=== PATIENT | female | born 1950 | race Caucasian/White ===

== ENCOUNTER 2016-04-07 09:59 | Inpatient (IN) | payer OTHER ==
[~2016-04-07 09:59] MED LIST: ACETAMINOPHEN 325 MG TAB PO ONE; BISACODYL 10 MG SUPP PR PRN; CEFAZOLIN 2 GM/DEXTR 100 ML IV ONE; CHLORHEXIDINE GLUC HIBICLENS 118 ML BTL TP ONE; CYCLOBENZAPRINE 10 MG TAB PO PRN; DIPHENOXYLATE/ATROPINE LOMOTIL 1 TAB PO PRN; FAMOTIDINE 20 MG TAB PO ONE; LACTULOSE 20 GM/30 ML UDCUP PO PRN; LR 1,000 ML IV SCH; MAGNESIUM HYDROXIDE 30 ML UDCUP PO PRN; METOCLOPRAMIDE 10 MG/2 ML VIAL IVP PRN; NON-FORMULARY NEW DRUG (Fish Oil/Dha/Epa [Fish Oil 1,200 Mg Fish Oil] 1 EACH) PO SCH; ONDANSETRON 4 MG/2 ML VIAL IVP PRN; ONDANSETRON DISINTEGRATING 4 MG TAB PO PRN; PHARMACY PAIN CONSULT 1 EA MISC PRN; POLYETHYLENE GLYCOL 3350 17 GM PKT PO PRN; PROMETHAZINE HCL 25 MG SUPPR PR PRN; PROMETHAZINE HCL 25 MG/ML INJ IVP PRN; ROPI/epiNEPH/KETOROLAC/morphINE JOINT COCKTAIL IU ONE; TEMAZEPAM 15 MG CAP PO PRN; diphenhydrAMINE 25 MG CAP PO PRN
[2016-04-07] MEDS ORDERED: THROMBIN (RECOMBINANT) 5,000 UNIT VIAL TP ONE (10:51)
[2016-04-07] MEDS ORDERED: ceFAZolin 1 GM/5 ML SYR ONE (10:52)
[2016-04-07] MEDS ORDERED: CALCIUM CHLORIDE 1 GM/10 ML INJ ONE (10:52)
[2016-04-07] MEDS ORDERED: LIDOCAINE 1% 5 ML SDV ID PRN (11:13)
[2016-04-07] MEDS ORDERED: LR 1,000 ML IV ONE (11:13)
[2016-04-07] MEDS ORDERED: CEFAZOLIN 2 GM/DEXTROSE/100 ML BAG IV ONE (11:19)
[2016-04-07] MEDS ORDERED: FAMOTIDINE 20 MG TAB ONE (11:19)
[2016-04-07] MEDS ORDERED: MIDAZOLAM 2 MG/2 ML VIAL ONE (11:55)
[2016-04-07] MEDS ORDERED: fentaNYL 100 MCG/2 ML INJ ONE (12:10)
[2016-04-07] MEDS ORDERED: PROPOFOL/EMULSION 500 MG/50 ML BOTTLE IV ONE (12:10)
[2016-04-07] MEDS ORDERED: ONDANSETRON 4 MG/2 ML VIAL ONE (13:05)
[2016-04-07] MEDS ORDERED: DEXAMETHASONE 4 MG/ML VIAL ONE (13:05)
[2016-04-07] MEDS ORDERED: ROPIVACAINE HCL 150 MG/30 ML INJ ONE (13:19)
--- NOTE | 2016-04-07 15:38 | DX ---
Total Right Knee, Supine AP and Crosstable Lateral Views, at 3:12 p.m. Clinical History: 65-year-old female, status post right knee arthroplasty. Comparison Study: Right knee, dated October 20, 2014. Findings: The patient has undergone a tricomponent knee arthroplasty, with anatomic alignment of the distal femoral, proximal tibial, and the posterior patellar components. Skin devang are seen anterio rly. There is normally expected postoperative air in the soft tissues. Impression: Anatomic alignment following a right knee arthroplasty.
[2016-04-07] MEDS: ACETAMINOPHEN 325 MG TAB PO SCH ×2 (15:43→17:20)
[2016-04-07] MEDS: HYDROCHLOROTHIAZIDE 12.5 MG CAP PO SCH ×2 (15:44→17:20)
[2016-04-07] MEDS: CHOLECALCIFEROL VIT D3 2,000 UNITS TAB/CAP PO SCH (15:44)
[2016-04-07] MEDS: OMEGA-3 FATTY ACIDS 1,000 MG CAP PO SCH ×3 (15:44→18:50)
--- NOTE | 2016-04-07 15:44 | PDIAF ---
- Diagnosis Diagnosis: right knee djd Code Status: Full Code - Medication Management Discharge Medications: Medications to Continue on Transfer Alendronate Sodium [Fosamax 70 MG (*)] 70 mg PO SALAZAR@0700 03/17/16 [Last Taken 1 Day Ago] Aspirin [Aspirin 81mg (*)] 81 mg PO DAILY 03/17/16 [Last Taken 03/30/16] Cholecalciferol Vit D3 [Vitamin D3 2000 units tab (OTC)] 2,000 units PO DAILY [Last Taken 03/30/16] Fish Oil/Dha/Epa [Fish Oil 1,200 mg Fish Oil] 1 each PO 0800,1600 03/17/16 [ Last Taken 03/30/16] Herbals/Supplements -Info Only 1 ea PO DAILY 03/17/16 [Last Taken 03/30/16] Hydrochlorothiazide [HCTZ (*)] 12.5 mg PO 0800,1600 03/17/16 [Last Taken ] Multivitamins [Multivitamin (*)] 1 each PO DAILY 03/17/16 [Last Taken 03/30/16] Zolpidem Tartrate [Zolpidem Tartrate ER] 12.5 mg PO HS 03/17/16 [Last Taken 1 Day Ago] Discharge Medications: Refer to the Discharge Home Medication list for PRN reason. - Orders Diet Recommendation: no restrictions on diet Diet Texture: Regular Texture Diet Activity/Weight Bearing Restrictions: wbat. rom as elton. daily dressing changes. may shower without bandage, no soaking or immersion. f/u at two weeks [facility], call for appointment. seek attn for increasing pain, cp , sob. aspirin 325 mg po daily\. tiera rosen x 2 weeks - Follow Up Care Current Providers and Referrals: Shawnee Duran MD [Primary Care Provider] -
[2016-04-07] MEDS: SENNOSIDES/DOCUSATE SODIUM TAB PO SCH ×2 (15:45→21:56)
[2016-04-07] MEDS: oxyCODONE IR 5 MG TAB PO PRN ×3 (15:59→22:45)
[2016-04-07] MEDS: DIAZEPAM 5 MG TAB PO PRN (19:20)
[2016-04-07] MEDS ORDERED: ceFAZolin 2 GM/DEXTROSE 100 ML IV SCH (20:30)
[2016-04-07] MEDS ORDERED: NON-FORMULARY NEW DRUG (Zolpidem Tartrate [Zolpidem Tartrate Er] 12.5 MG) PO SCH (21:00)
[2016-04-07] MEDS ORDERED: ZOLPIDEM TARTRATE 5 MG TAB PO SCH (21:00)
[2016-04-07] MEDS ORDERED: ASPIRIN 325 MG TAB PO SCH (21:00)
[2016-04-07 21:29] VITALS: RESP 16
[2016-04-07] MEDS: FAMOTIDINE 20 MG TAB PO SCH (21:56)
[2016-04-07] MEDS: ceFAZolin 2 GM in D5W 100 ML IV SCH (22:02)
[2016-04-08 00:25] VITALS: O2SAT 96
[2016-04-08] MEDS: ACETAMINOPHEN 325 MG TAB PO SCH ×2 (00:48→07:30)
[2016-04-08] MEDS: DIAZEPAM 5 MG TAB PO PRN (01:48)
[2016-04-08] MEDS: oxyCODONE IR 5 MG TAB PO PRN ×2 (01:48→10:50)
[2016-04-08 06:55] LABS: HEMATOCRIT 33.6 % (38.0-47.0); HEMOGLOBIN 11.7 g/dL (12.6-16.3)
--- NOTE | 2016-04-08 07:12 | PDIAF ---
- Diagnosis Diagnosis: right knee djd Code Status: Full Code - Medication Management Discharge Medications: Medications to Continue on Transfer Alendronate Sodium [Fosamax 70 MG (*)] 70 mg PO SALAZAR@0700 03/17/16 [Last Taken 1 Day Ago] Aspirin [Aspirin 81mg (*)] 81 mg PO DAILY 03/17/16 [Last Taken 03/30/16] Cholecalciferol Vit D3 [Vitamin D3 2000 units tab (OTC)] 2,000 units PO DAILY [Last Taken 03/30/16] Fish Oil/Dha/Epa [Fish Oil 1,200 mg Fish Oil] 1 each PO 0800,1600 03/17/16 [ Last Taken 03/30/16] Herbals/Supplements -Info Only 1 ea PO DAILY 03/17/16 [Last Taken 03/30/16] Hydrochlorothiazide [HCTZ (*)] 12.5 mg PO 0800,1600 03/17/16 [Last Taken ] Multivitamins [Multivitamin (*)] 1 each PO DAILY 03/17/16 [Last Taken 03/30/16] Zolpidem Tartrate [Zolpidem Tartrate ER] 12.5 mg PO HS 03/17/16 [Last Taken 1 Day Ago] Aspirin [Aspirin 325 mg (*)] 325 mg PO HS #0 tab 04/08/16 [Last Taken Unknown] Diazepam [Valium 5 MG (*)] 5 mg PO Q6HRS PRN #40 tab 04/08/16 [Last Taken Unknown] Zolpidem Tartrate [Ambien 5MG (*)] 10 mg PO HS #20 tab 04/08/16 [Last Taken Unknown] oxyCODONE IR [Oxycodone Ir (*)] 5 - 10 mg PO Q3HRS PRN #80 tab 04/08/16 [Last Taken Unknown] Discharge Medications: Refer to the Discharge Home Medication list for PRN reason. - Orders Services needed: Physical Therapy Diet Recommendation: no restrictions on diet Diet Texture: Regular Texture Diet Activity/Weight Bearing Restrictions: wbat. rom as elton. daily dressing changes. may shower without bandage, no soaking or immersion. f/u at two weeks [facility], call for appointment. seek attn for increasing pain, cp , sob. aspirin 325 mg po daily\. tiera hose x 2 weeks - Follow Up Care Current Providers and Referrals: Shawnee Duran MD [Primary Care Provider] -
[2016-04-08] MEDS: ceFAZolin 2 GM in D5W 100 ML IV SCH (07:30)
[2016-04-08 07:55] VITALS: BP 107/65; PULSE 68; TEMP 98.2
[2016-04-08] MEDS: CHOLECALCIFEROL VIT D3 2,000 UNITS TAB/CAP PO SCH (08:49)
[2016-04-08] MEDS: OMEGA-3 FATTY ACIDS 1,000 MG CAP PO SCH (08:49)
[2016-04-08] MEDS: FAMOTIDINE 20 MG TAB PO SCH (08:49)
[2016-04-08] MEDS: SENNOSIDES/DOCUSATE SODIUM TAB PO SCH (08:50)
[2016-04-08] MEDS: HYDROCHLOROTHIAZIDE 12.5 MG CAP PO SCH (08:54)
--- NOTE | 2016-04-08 09:47 | GDS ---
[f rep st] DISCHARGE SUMMARY ADMISSION DIAGNOSIS: Right knee degenerative joint disease. DISCHARGE DIAGNOSIS: Right knee degenerative joint disease. PROCEDURE: Right total knee arthroplasty. HISTORY OF PRESENT ILLNESS: The patient is a 65-year-old woman with end-stage arthritis to her [facility] t knee. Clinical and radiographic features are consistent with this. She has failed all attempts a t conservative management. I have therefore recommended total knee replacement. She understood the risks, benefits, alternatives, and wished to proceed. Written consent was signed and placed in catrachita varela's chart. HOSPITAL COURSE: The patient was admitted to the hospital floor after undergoing uncomplicated tota l knee arthroplasty. She tolerated the procedure well. At the time of discharge, she was toleratin g oral diet. Her pain is well controlled on oral medicines. Her dressing is clean, dry, and intact . She has intact plantar flexion, dorsiflexion, EHL function. Negative Homans bilaterally. X-rays are stable postsurgical alignment. DISCHARGE ACTIVITY: She is weightbearing as tolerated. Range of motion as tolerated. Daily dressi ng changes. No soaking and/or immersion. Follow up in 2 weeks for repeat evaluation. DISCHARGE MEDICATIONS: Oxycodone 5 mg 1-2 every 3 hours p.r.n. pain, Valium 5 mg 1-2 every 8 hours p.r.n. spasm, aspirin 325 mg p.o. daily. /[id number]/MODL
[2016-04-13] MEDS ORDERED: ALENDRONATE SODIUM 70 MG TAB PO SCH (07:00)
== END 2016-04-08 11:58 | disposition home health service (06) | DRG 470 ==
LOC: F3N 09:59
PROVIDERS: ADMIT Orthopaedic Surgery; ATTEND Orthopaedic Surgery
PROC: 0SRC0J9 Replacement of Right Knee Joint with Synthetic Substitute, Cemented, Open Approach (ICD-10-PCS; principal; 2016-04-07 11:30)
DX: M17.11 Unilateral primary osteoarthritis, right knee (principal)
CPT/HCPCS: 97110-GP; 97161-GP; 97165-GO; C1713; G8978-GP-CI; G8979-GP-CI; G8980-GP-CI; G8987-GO-CI; G8988-GO-CI; G8989-GO-CI; J0171; J0690; J1100; J1885; J2250; J2405; J2704; J2795; J3010

== ENCOUNTER → 2016-05-20 | Outpatient (CLI) | payer OTHER | LOC: BMCIMAGING 10:39 | PROVIDERS: ATTEND Physician Assistant | DX: Z09 Encounter for follow-up examination after completed treatment for conditions other than malignant neoplasm (principal); Z96.651 Presence of right artificial knee joint ==

== ENCOUNTER → 2016-07-11 | Outpatient (CLI) | payer OTHER | LOC: BMCIMAGING 11:04 | PROVIDERS: ATTEND Orthopaedic Surgery | DX: Z09 Encounter for follow-up examination after completed treatment for conditions other than malignant neoplasm (principal); Z96.651 Presence of right artificial knee joint ==

== ENCOUNTER → 2016-07-15 | Outpatient (CLI) | payer OTHER | LOC: FIMAGING 13:54 | PROVIDERS: ATTEND Family Medicine | DX: Z12.31 Encounter for screening mammogram for malignant neoplasm of breast (principal) | CPT/HCPCS: G0202 ==

== ENCOUNTER → 2016-10-08 | Outpatient (CLI) | payer OTHER | LOC: BMCIMAGING 12:53 | PROVIDERS: ATTEND Orthopaedic Surgery | DX: Z47.1 Aftercare following joint replacement surgery (principal); Z96.651 Presence of right artificial knee joint ==

== ENCOUNTER → 2017-04-08 | Outpatient (CLI) | payer OTHER | LOC: FIMAGING 13:21 | PROVIDERS: ATTEND Internal Medicine Endocrinology, Diabetes & Metabolism | DX: Z13.820 Encounter for screening for osteoporosis (principal); M81.0 Age-related osteoporosis without current pathological fracture; Z79.899 Other long term (current) drug therapy; Z78.0 Asymptomatic menopausal state ==

== ENCOUNTER → 2017-04-30 | Outpatient (CLI) | payer OTHER | LOC: BMCIMAGING 10:29 | PROVIDERS: ATTEND Physician Assistant | DX: Z47.1 Aftercare following joint replacement surgery (principal); Z96.651 Presence of right artificial knee joint ==

== ENCOUNTER → 2017-07-27 | Outpatient (CLI) | payer OTHER | LOC: FIMAGING 12:57 | PROVIDERS: ATTEND Family Medicine | DX: Z12.31 Encounter for screening mammogram for malignant neoplasm of breast (principal) ==

== ENCOUNTER → 2017-12-21 | Outpatient (CLI) | payer OTHER | LOC: BMCIMAGING 10:05 | PROVIDERS: ATTEND Physician Assistant | DX: M17.12 Unilateral primary osteoarthritis, left knee (principal) ==

== ENCOUNTER → 2018-01-24 | Outpatient (CLI) | payer OTHER | LOC: FIMAGING 12:12 | PROVIDERS: ATTEND Orthopaedic Surgery | DX: Z01.818 Encounter for other preprocedural examination (principal); M17.12 Unilateral primary osteoarthritis, left knee ==

== ENCOUNTER → 2018-03-10 | Outpatient (CLI) | payer OTHER | LOC: BMCIMAGING 13:58 | PROVIDERS: ATTEND Family Medicine | DX: Z01.811 Encounter for preprocedural respiratory examination (principal); M17.12 Unilateral primary osteoarthritis, left knee; J98.4 Other disorders of lung ==

== ENCOUNTER 2018-04-05 08:50 | Observation (INO) | payer OTHER ==
--- NOTE | 2018-04-05 06:46 | PDHPUP ---
History & Physical Update H&P update statement: This history and physical update is based on an assessment of the patient which was completed after admission or registration (within 24 hours), but prior to the surgery/procedure. H&P update: no change in patient's condition since H&P completed
--- NOTE | 2018-04-05 06:47 | PDIAF ---
- Diagnosis Diagnosis: left knee djd Code Status: Full Code - Medication Management Discharge Medications: electronically signed and located in the Home Medication List. - Orders Services needed: Physical Therapy Diet Recommendation: no restrictions on diet Diet Texture: Regular Texture Diet Additional Instructions: TOTAL JOINT ARTHROPLASTY DISCHARGE INSTRUCTIONS 1. Your surgeon follows the [facility] protocol for reducing your risk of DVT (blood clots) following surgery. Medication will be ordered to prevent blood clots. A sudden increase in calf pain and/or swelling could indicate a blood clot in your leg. If this occurs, please call your surgeon or his/her syrup mixer assistant. An ultrasound of the leg may be necessary to diagnose a blood clot. If you have conditions that make you a higher risk for blood clots, your surgeon may use more aggressive ways to prevent them. Notify your surgeon if you think you are a high risk for blood clots. 2. Wear your white surgical stockings (CIARRA hose) for 2 weeks. This decreases your swelling and may help prevent blood clots. It is ok to remove CIARRA hose at night time to give your legs a break. 3. Swelling and bruising in the surgical leg is common. If you feel that it is excessive, please notify your surgeon. 4. Elevate your surgical leg with the ankle above the hip several times every day. Please keep the leg straight when you elevate by putting pillows under your foot. Do not put pillows under your knee. This will make being able to fully straighten more difficult. This is uncomfortable, but try to do it as much as possible. 5. For total knee replacements use compressive wrap on your knee for 3-5 days after surgery, then you can discontinue it. 6. Use a walker or crutches for 1-2 weeks. Progress your weight-bearing as tolerated. You may start to use a cane when you feel stable and safe. 7. You will receive physical therapy instructions in the hospital. Continue those exercises at home. There are additional exercises in the total joint booklet you were given before surgery. Outpatient physical therapy will begin 7- 10 days after surgery. Please schedule this in advance. 8. Use ice on your knee at least 3-5 times every day for 30 minutes. This helps reduce pain and swelling. Also use it at night before falling asleep. 9. Leave your surgical dressing in place for 2 weeks. Your dressing is water resistant, but not waterproof. Cover it with Saran Wrap or [id number]-t-Dbvs before showering. You may shower as soon as you feel safe entering a shower. If you notice bleeding from your incision 2 or 3 days after surgery, please notify your surgeon. 10. Due to narcotics, decreased activity and altered diet, most patients experience constipation after surgery. Use [id number] stool softeners while you are on narcotics. 11. You may drive a car when you are comfortable bearing weight, have good muscular control of your leg and are off narcotics. This usually occurs 2-4 weeks after surgery, depending on which leg was operated on. 12. If there are questions not addressed here, please refer the [facility] book given for more information. If you still have questions, please contact your surgeon s office. 13. If you have a life-threatening emergency, please call 911 and go to the emergency room immediately. For non-life threatening emergencies, please call your physicians office for advice before going to the emergency room. - Follow Up Care Current Providers and Referrals: Shawnee Duran MD [Primary Care Provider] - Jesu Carlton MD [Medical Doctor] -
[~2018-04-05 08:50] MED LIST changes: -ACETAMINOPHEN 325 MG TAB PO ONE; -BISACODYL 10 MG SUPP PR PRN; -CEFAZOLIN 2 GM/DEXTR 100 ML IV ONE; -CHLORHEXIDINE GLUC HIBICLENS 118 ML BTL TP ONE; -CYCLOBENZAPRINE 10 MG TAB PO PRN; -DIPHENOXYLATE/ATROPINE LOMOTIL 1 TAB PO PRN; -FAMOTIDINE 20 MG TAB PO ONE; -LACTULOSE 20 GM/30 ML UDCUP PO PRN; -LR 1,000 ML IV SCH; -MAGNESIUM HYDROXIDE 30 ML UDCUP PO PRN; -METOCLOPRAMIDE 10 MG/2 ML VIAL IVP PRN; -NON-FORMULARY NEW DRUG (Fish Oil/Dha/Epa [Fish Oil 1,200 Mg Fish Oil] 1 EACH) PO SCH; -ONDANSETRON 4 MG/2 ML VIAL IVP PRN; -ONDANSETRON DISINTEGRATING 4 MG TAB PO PRN; -PHARMACY PAIN CONSULT 1 EA MISC PRN; -POLYETHYLENE GLYCOL 3350 17 GM PKT PO PRN; -PROMETHAZINE HCL 25 MG SUPPR PR PRN; -PROMETHAZINE HCL 25 MG/ML INJ IVP PRN; -ROPI/epiNEPH/KETOROLAC/morphINE JOINT COCKTAIL IU ONE; +ROPIVACAINE 0.2% 80 MG, EPINEPHrine 0.2 MG, KETOROLAC TROMETHAMINE 30 MG, morphINE 10 M... IU ONE; -TEMAZEPAM 15 MG CAP PO PRN; +TRANEXAMIC ACID 1,000 MG in NS 100 ML IV ONE; -diphenhydrAMINE 25 MG CAP PO PRN
[2018-04-05] MEDS ORDERED: ceFAZolin 2 GM/DEXTROSE 100 ML IV ONE (09:18)
[2018-04-05] MEDS ORDERED: ACETAMINOPHEN 325 MG TAB PO ONE (09:18)
[2018-04-05] MEDS ORDERED: FAMOTIDINE 20 MG TAB PO ONE (09:18)
[2018-04-05] MEDS ORDERED: LR 1,000 ML IV ONE (09:19)
[2018-04-05] MEDS ORDERED: PROPOFOL/EMULSION 500 MG/50 ML BOTTLE IV ONE (09:20)
[2018-04-05] MEDS ORDERED: fentaNYL 100 MCG/2 ML INJ ONE ×3 (09:20→12:46)
--- NOTE | 2018-04-05 09:23 | PDANEPAE ---
ANE Past Medical History - Cardiovascular History Hx Hypertension: Yes Hx Arrhythmias: No Hx Chest Pain: No Hx Coronary Artery / Peripheral Vascular Disease: No Hx CHF / Valvular Disease: No Hx Palpitations: No Cardiovascular History Comment: HYPERCALCIURIA - Pulmonary History Hx COPD: No Hx Asthma/Reactive Airway Disease: No Hx Recent Upper Respiratory Infection: No Hx Oxygen in Use at Home: No Hx Sleep Apnea: No Sleep Apnea Screening Result - Last Documented: Negative - Neurologic History Hx Cerebrovascular Accident: No Hx Seizures: No Hx Dementia: No - Endocrine History Hx Diabetes: No Hypothyroid: No Hyperthyroid: No Obesity: no - Renal History Hx Renal Disorders: No - Liver History Hx Hepatic Disorders: No - Neurological & Psychiatric Hx Hx Neurological and Psychiatric Disorders: No Neurological / Psychiatric History Comment: ANXIETY - Cancer History Hx Cancer: No Cancer History Comment: MELANOMA REMOVED FROM L LEG,3 LYMPH NODES REMOVED IN GROIN AREA - Congenital Disorder History Hx Congenital Disorders: No - GI History GERD: no Hx Gastrointestinal Disorders: Yes Gastrointestinal History Comment: IBS - Other Health History Other Health History: INSOMNIA. OSTEOPOROSIS. ALLERGIC RHINITIS - Chronic Pain History Chronic Pain: Yes (RT KNEE) - Surgical History Prior Surgeries: REMVL MELANOMA BEHIND LT KNEE AND REMVL LYMPH NODES. 09/2015 POST LEG INFECTION TREATED WITH ANTIBIOTICS. APPENDECTOMY. LT ANKLE ORIF WITH POST HARDWARE REMVL. LT KNEE SCOPE ANE Review of Systems Review of Systems: - Exercise capacity Exercise capacity: >=4 METS, limited by disability METS (RN): 5 METS ANE Patient History - Allergies Allergies/Adverse Reactions: lactose Allergy (Verified 03/19/18 16:24) Other-Enter Comments SEASONAL Allergy (Uncoded 03/19/18 16:20) Other-Enter Comments - Home Medications Home Medications: Alendronate Sodium [Fosamax 70 MG (*)] 70 mg PO SALAZAR@0700 03/17/16 [Last Taken 06/11] Aspirin [Aspirin 81mg (*)] 81 mg PO DAILY 03/17/16 [Last Taken 03/01/18] Fish Oil/Dha/Epa [Fish Oil 1,200 mg Fish Oil] 1 each PO DAILY 03/17/16 [Last Taken 03/29/18] Herbals/Supplements -Info Only 1 ea PO DAILY 03/17/16 [Last Taken 03/22/18] Hydrochlorothiazide [HCTZ (*)] 12.5 mg PO 0800,1600 03/17/16 [Last Taken ] Multivitamins [Multivitamin (*)] 1 each PO DAILY 03/17/16 [Last Taken 03/01/18] Zolpidem Tartrate [Zolpidem Tartrate ER] 12.5 mg PO HS 03/17/16 [Last Taken 12/11] Gabapentin [Neurontin 300 MG (*)] 300 mg PO TID 03/01/18 [Last Taken 04/05/18] Estradiol [VAGIFEM] 10 mcg VG DAILY 04/05/18 [Last Taken 04/01/18] - Anes Hx Anes Hx: no prior problems - Smoking Hx Smoking Status: Former smoker Marijuana use: No - Alcohol Use Alcohol Use: Occasionally - Family Anes Hx Family Anes Hx: neg - N/A Family Hx Anesthesia Complications: none ANE Labs/Vital Signs - Vital Signs Height: 161.29 cm Weight: 65.771 kg ANE Physical Exam - Airway Neck exam: FROM Mallampati Score: Class 2 Mouth exam: normal dental/mouth exam - Pulmonary Pulmonary: no respiratory distress, no rales or rhonchi, clear to auscultation - Cardiovascular Cardiovascular: regular rate and rhythym, no murmur, rub, or gallop - ASA Status ASA Status: II ANE Anesthesia Plan Anesthesia Plan: MAC, spinal Regional Anesthesia: single shot NB, adductor canal FNB Total IV Anesthesia: No
[2018-04-05] MEDS ORDERED: THROMBIN (BOVINE) 5,000 UNIT VIAL TP ONE (09:37)
[2018-04-05] MEDS ORDERED: CALCIUM CHLORIDE 1 GM/10 ML INJ ONE (09:38)
[2018-04-05] MEDS ORDERED: ceFAZolin 1 GM/5 ML SYR ONE (09:39)
[2018-04-05] MEDS ORDERED: MIDAZOLAM 2 MG/2 ML VIAL ONE (09:55)
[2018-04-05] MEDS ORDERED: BUPIVACAINE/DEXTROSE 7.5MG/ML 2 ML SPINAL AMP SP ONE (10:03)
[2018-04-05] MEDS ORDERED: MIDAZOLAM 2 MG/2 ML VIAL IVP ONE (10:07)
[2018-04-05] MEDS ORDERED: ONDANSETRON 4 MG/2 ML VIAL IVP PRN ×2 (10:58→11:29)
[2018-04-05] MEDS ORDERED: HYDROCODONE/APAP 5/325 TAB PO PRN (10:58)
[2018-04-05] MEDS ORDERED: ACETAMINOPHEN 500 MG TAB PO PRN (10:58)
[2018-04-05] MEDS ORDERED: PROMETHAZINE HCL 25 MG/ML INJ IVP PRN ×2 (10:58→11:29)
[2018-04-05] MEDS ORDERED: PHENYLEPHRINE HCL 100 MCG/ML SYR IVP PRN (10:58)
[2018-04-05] MEDS ORDERED: oxyCODONE IR 5 MG TAB PO PRN (10:58)
[2018-04-05] MEDS ORDERED: NALOXONE HCL 0.4 MG/ML INJ IVP PRN (10:58)
[2018-04-05] MEDS ORDERED: LR 500 ML IV PRN (10:58)
[2018-04-05] MEDS ORDERED: ROPIVACAINE HCL 150 MG/30 ML INJ ONE (11:27)
[2018-04-05] MEDS ORDERED: METOCLOPRAMIDE 10 MG/2 ML VIAL IVP PRN (11:29)
[2018-04-05] MEDS ORDERED: ONDANSETRON DISINTEGRATING 4 MG TAB PO PRN (11:29)
[2018-04-05] MEDS ORDERED: PROMETHAZINE HCL 25 MG SUPPR PR PRN (11:29)
[2018-04-05] MEDS ORDERED: POLYETHYLENE GLYCOL 3350 17 GM PKT PO PRN (11:29)
[2018-04-05] MEDS ORDERED: LACTULOSE 20 GM/30 ML UDCUP PO PRN (11:29)
[2018-04-05] MEDS ORDERED: TEMAZEPAM 15 MG CAP PO PRN (11:29)
[2018-04-05] MEDS ORDERED: traMADol 50 MG TAB PO PRN (11:29)
[2018-04-05] MEDS ORDERED: diphenhydrAMINE 25 MG CAP PO PRN (11:29)
[2018-04-05] MEDS ORDERED: MAGNESIUM HYDROXIDE 30 ML UDCUP PO PRN (11:29)
[2018-04-05] MEDS ORDERED: BISACODYL 10 MG SUPP PR PRN (11:29)
[2018-04-05] MEDS ORDERED: DIPHENOXYLATE/ATROPINE LOMOTIL 1 TAB PO PRN (11:29)
--- NOTE | 2018-04-05 11:29 | POSTOPPROG ---
Post Op Note Date of Operation: 04/05/18 Surgeon: Jesu Carlton Clay Dry Press Helper: roshni Anesthesiologist: claribel Anesthesia: GET(General Endotracheal) Pre-op Diagnosis: left knee djd Post-op Diagnosis: same Indication: same Procedure: left tka Inf/Abcess present in the surg proc area at time of surgery?: No Depth: Deep Incisional (Fascial) EBL: 50-100
[2018-04-05] MEDS ORDERED: LR 1,000 ML IV SCH (11:30)
[2018-04-05] MEDS: fentaNYL 100 MCG/2 ML INJ IVP PRN ×3 (12:10→12:47)
[2018-04-05] MEDS ORDERED: oxyCODONE IR 5 MG TAB ONE (12:32)
[2018-04-05] MEDS ORDERED: HYDROmorphONE/DILAUDID 2 MG/ML INJ ONE (12:46)
[2018-04-05] MEDS ORDERED: ENALAPRILAT DIHYDRATE 1.25 MG/ML VIAL ONE (12:46)
[2018-04-05] MEDS: HYDROmorphONE/DILAUDID 2 MG/ML INJ IVP PRN ×2 (12:52→13:02)
[2018-04-05] MEDS ORDERED: HYDROmorphONE/DILAUDID 2 MG/ML INJ IVP PRN (13:41)
[2018-04-05] MEDS ORDERED: ENALAPRILAT DIHYDRATE 1.25 MG/ML VIAL IVP PRN (13:42)
[2018-04-05] MEDS: ACETAMINOPHEN 325 MG TAB PO SCH ×3 (14:23→23:00)
[2018-04-05] MEDS: TRANEXAMIC ACID 650 MG TAB PO SCH ×2 (14:35→22:49)
[2018-04-05] MEDS: ceFAZolin 2 GM/DEXTROSE 100 ML IV SCH ×2 (16:24→23:01)
[2018-04-05] MEDS: HYDROCHLOROTHIAZIDE 12.5 MG CAP PO SCH (16:26)
[2018-04-05] MEDS: GABAPENTIN 300 MG CAP PO SCH ×2 (16:26→22:47)
[2018-04-05] MEDS: CYCLOBENZAPRINE 10 MG TAB PO PRN (16:32)
[2018-04-05] MEDS: oxyCODONE IR 5 MG TAB PO PRN ×3 (18:22→22:46)
[2018-04-05] MEDS ORDERED: ZOLPIDEM TARTRATE 5 MG TAB PO SCH (21:00)
[2018-04-05] MEDS: FAMOTIDINE 20 MG TAB PO SCH (22:46)
[2018-04-05] MEDS: SENNOSIDES/DOCUSATE SODIUM TAB PO SCH (22:47)
[2018-04-05] MEDS: ASPIRIN 325 MG TAB PO SCH (22:57)
[2018-04-06] MEDS: ACETAMINOPHEN 325 MG TAB PO SCH ×2 (05:08→12:26)
[2018-04-06] MEDS: TRANEXAMIC ACID 650 MG TAB PO SCH (05:08)
[2018-04-06] MEDS: oxyCODONE IR 5 MG TAB PO PRN ×2 (05:10→09:54)
[2018-04-06] MEDS: CYCLOBENZAPRINE 10 MG TAB PO PRN (05:13)
--- NOTE | 2018-04-06 07:21 | PDIAF ---
- Diagnosis Diagnosis: left knee djd Code Status: Full Code - Medication Management Discharge Medications: electronically signed and located in the Home Medication List. - Orders Services needed: Physical Therapy Diet Recommendation: no restrictions on diet Diet Texture: Regular Texture Diet Additional Instructions: TOTAL JOINT ARTHROPLASTY DISCHARGE INSTRUCTIONS 1. Your surgeon follows the [facility] protocol for reducing your risk of DVT (blood clots) following surgery. Medication will be ordered to prevent blood clots. A sudden increase in calf pain and/or swelling could indicate a blood clot in your leg. If this occurs, please call your surgeon or his/her doctor assistant. An ultrasound of the leg may be necessary to diagnose a blood clot. If you have conditions that make you a higher risk for blood clots, your surgeon may use more aggressive ways to prevent them. Notify your surgeon if you think you are a high risk for blood clots. 2. Wear your white surgical stockings (CIARRA hose) for 2 weeks. This decreases your swelling and may help prevent blood clots. It is ok to remove CIARRA hose at night time to give your legs a break. 3. Swelling and bruising in the surgical leg is common. If you feel that it is excessive, please notify your surgeon. 4. Elevate your surgical leg with the ankle above the hip several times every day. Please keep the leg straight when you elevate by putting pillows under your foot. Do not put pillows under your knee. This will make being able to fully straighten more difficult. This is uncomfortable, but try to do it as much as possible. 5. For total knee replacements use compressive wrap on your knee for 3-5 days after surgery, then you can discontinue it. 6. Use a walker or crutches for 1-2 weeks. Progress your weight-bearing as tolerated. You may start to use a cane when you feel stable and safe. 7. You will receive physical therapy instructions in the hospital. Continue those exercises at home. There are additional exercises in the total joint booklet you were given before surgery. Outpatient physical therapy will begin 7- 10 days after surgery. Please schedule this in advance. 8. Use ice on your knee at least 3-5 times every day for 30 minutes. This helps reduce pain and swelling. Also use it at night before falling asleep. 9. Leave your surgical dressing in place for 2 weeks. Your dressing is water resistant, but not waterproof. Cover it with Saran Wrap or Vsgbs-o-Ucem before showering. You may shower as soon as you feel safe entering a shower. If you notice bleeding from your incision 2 or 3 days after surgery, please notify your surgeon. 10. Due to narcotics, decreased activity and altered diet, most patients experience constipation after surgery. Use rpxw-dwz-kojaosq stool softeners while you are on narcotics. 11. You may drive a car when you are comfortable bearing weight, have good muscular control of your leg and are off narcotics. This usually occurs 2-4 weeks after surgery, depending on which leg was operated on. 12. If there are questions not addressed here, please refer the [facility] book given for more information. If you still have questions, please contact your surgeon s office. 13. If you have a life-threatening emergency, please call 911 and go to the emergency room immediately. For non-life threatening emergencies, please call your physicians office for advice before going to the emergency room. - Follow Up Care Current Providers and Referrals: Shawnee Duran MD [Primary Care Provider] - Jesu Carlton MD [Medical Doctor] -
--- NOTE | 2018-04-06 07:22 | SOAPPROG ---
SOAP Progress Note Assessment/Plan: Assessment: s/p tka Plan:d/c home dvt precautions reviewed f/u at two weeks seek attn for increasing pain, other complaint 04/06/18 07:21 Objective: Vital Signs Temp Pulse Resp BP Pulse Ox 36.6 C 81 16 109/84 H 94 04/06/18 04:00 04/06/18 04:00 04/06/18 04:00 04/06/18 04:00 04/06/18 04:00 Laboratory Results 04/06/18 05:22 04/05/18 04/06/18 04/07/18 05:59 05:59 05:59 Intake Total 3580 Output Total 2790 Balance 790 dressing intact intact pf,df,ehl toes warm and pink neg homans debi xrays anatomic alignement no fx ICD10 Worksheet Patient Problems: Problems Problem Status Onset Arthritis of knee Acute - ICD10 Problem Qualifiers (1) Arthritis of knee
[2018-04-06] MEDS ORDERED: Estradiol [Vagifem] 10 MCG VG SCH (09:00)
[2018-04-06] MEDS ORDERED: OMEGA-3 FATTY ACIDS 1,000 MG CAP PO SCH (09:00)
[2018-04-06] MEDS: SENNOSIDES/DOCUSATE SODIUM TAB PO SCH (09:46)
[2018-04-06] MEDS: HYDROCHLOROTHIAZIDE 12.5 MG CAP PO SCH (09:50)
[2018-04-06] MEDS: ASPIRIN 325 MG TAB PO SCH (09:51)
[2018-04-06] MEDS: FAMOTIDINE 20 MG TAB PO SCH (09:52)
[2018-04-06] MEDS: GABAPENTIN 300 MG CAP PO SCH (09:53)
--- NOTE | 2018-04-06 11:39 | ASMTLACE ---
JOSEE Length of stay for Answers: 2 days current admission Acuity / Level of Answers: Yes Care: Did the patient have an inpatient admission? Comorbidities - select Answers: Opioid dependence all that apply / Chronic pain Other Notes: HTN # of Emergency department Answers: 0 visits in the last 6 months Social determinants Answers: Mental health diagnosis (anxiety, depression, pers onality disorders, etc.) Score: 13 Date Signed: 04/06/2018 11:38 AM Electronically Signed By:JACQUES Palacio
--- NOTE | 2018-04-06 11:42 | ASMTCMCOM ---
CM Note CM Note Notes: Pthad panned knee surgey. Pt resides with alyssa Duong. PT requests C, specifically [facility]. Referral made in [employer] and Melanie notified. Orders to be obtained via [employer]. Pt address/phone verified. Date Signed: 04/06/2018 11:41 AM Electronically Signed By:JACQUES Palacio
[2018-04-06 12:12] VITALS: BP 108/73
--- NOTE | 2018-04-06 16:34 | ASDISCHSUM ---
Discharge Information Plan Status:Home with Home Health Medically Cleared to Leave: Discharge Date:04/06/2018 01:18 PM CM D/C Disposition: ADT D/C Disposition:Home Health Service Projected Discharge Date:04/06/2018 11:00 AM Transportation at D/C: Discharge Delay Reason: Follow-Up Date:04/06/2018 11:00 AM Discharge Slot: Final Diagnosis: Placement Information Referral Type:*Home Health Care Services Referral ID:[id number] Provider Name:[facility] Address 1:[address] Address 2: City:[place] Selection Factors: State:[place] Patient Contact Information Contact Name:KUNAL Relationship: Address:[address] City:[place] Alternate Phone: State/Zip Code:[place] [address] Email: Financial Information Financial Class:Medicare Primary Plan Desc:MEDICARE OUTPATIENT Primary Plan Number:[id number] Secondary Plan Desc:MARC[employer] PPO AND EPO Secondary Plan Number:[id number] Assessment Information LACE LACE Length of stay for Answers: 2 days current admission Acuity / Level of Answers: Yes Care: Did the patient have an inpatient admission? Comorbidities - select Answers: Opioid dependence all that apply / Chronic pain Other Notes: HTN # of Emergency department Answers: 0 visits in the last 6 months Social determinants Answers: Mental health diagnosis (anxiety, depression, pers onality disorders, etc.) Score: 13 Date Signed: 04/06/2018 11:38 AM Electronically Signed By:JACQUES Palacio [facility] CM Progress Note CM Note CM Note Notes: Pthad panned knee toni. Pt resides with alyssa Duong. PT requests [facility], specifically [facility]. [facility] and Melanie notified. Orders to be obtained via [employer]. Pt address/phone verified. Date Signed: 04/06/2018 11:41 AM Electronically Signed By:JACQUES Palacio Intervention Information
--- NOTE | 2018-04-08 17:08 | GOP ---
[f rep st] OPERATIVE REPORT DATE OF OPERATION: 04/05/2018 SURGEON: Jesu Carlton MD ETHICAL HACKER: Luis Mike, LIGHTOUT EXAMINER, [facility], due to medical necessity for the entirety of the case preop erative. PREOPERATIVE DIAGNOSIS: Left knee degenerative joint disease. POSTOPERATIVE DIAGNOSIS: Left knee degenerative joint disease. PROCEDURE PERFORMED: Left total knee arthroplasty. FINDINGS: SPECIMENS: To Pathology, the bony cuts. INDICATIONS: The patient is a 67-year-old woman with end-stage arthritis to her left knee. She has failed all attempts at conservative management. I have recommended operative intervention with total knee replacement. I have outlined the surgical procedure, risks, benefits, and alternatives. She w ished to proceed. Written consent was signed and placed in the patient's chart. DESCRIPTION OF PROCEDURE: The patient was identified in the preanesthesia area. The left knee clear ly demarcated as the operative site with indelible marker. She was given a gram of vancomycin IV en route to the operative suite. In the OR, spinal anesthetic was placed followed by additional sedatio n. She was positioned in the supine position. The left lower extremity was sterilely prepped and dr aped in usual fashion. Tourniquet had been applied to the upper thigh. Appropriate time-out procedu re was carried out. The limb was then exsanguinated with Esmarch bandage. Tourniquet inflated to 27 5 mmHg. A standard anterior midline incision was made followed by a separate percutaneous incision o ashwin the mid tibia. Thick subcutaneous flaps were elevated followed by medial parapatellar arthrotomy . Subperiosteal elevation was carried out to the mid coronal plane, and the knee was brought to a fl exed position. There was tricompartmental arthritis. I therefore recommended proceeding with total knee replacement. Two pins were then placed from medial to lateral across the distal femur. Two pin s were then placed into the tibial incision. The tibial and femoral rays were affixed followed by th e femoral and tibial check points. All bony landmarks were entered in the computer in standard fashi on using the MAKOplasty software. The knee was balanced through the flexion-extension arc. Resectio ns were then made for a size 4 femur, size 4 tibia, and a trial reduction was carried out with a 4 x 9 mm polyethylene spacer. This allowed full extension and flexion to 130 degrees. There was no inst ability to varus or valgus stress through the flexion-extension arc. The trial components were withd rawn. In sequential fashion, the tibial and femoral components were press-fit into position. A 4 x 9 mm polyethylene spacer was placed. Stability profile was once again confirmed through the flexion- extension arc. The patella was then everted and cut in a freehand cutting technique. Drill holes we re made for a size 29 mm patella and a 29 mm press-fit patella was then placed. This tracked central ly through the flexion-extension arc. The wound was copiously irrigated. The tissue injected with a joint cocktail of ropivacaine, epinephrine, Toradol. The medial parapatellar arthrotomy was closed using #1 Ethibond suture. The knee instilled with platelet-rich plasma. Subcutaneous tissue closed using 2-0 Monocryl. The skin was stapled. Sterile dressing was applied. The patient was awakened, extubated and taken to the recovery room in good and stable condition. TOTAL TOURNIQUET TIME: 45 minutes. COMPLICATIONS: None. IMPLANTS: The [place] [employer] PS femoral component size 4, size 4 tibia, size 4 x 9 mm X3 polyethy homa spacer, and a 29 asymmetric patella. DISPOSITION: To the recovery room, then the floor. /[id number]/MODL
--- NOTE | 2018-04-08 17:08 | GDS ---
[f rep st] DISCHARGE SUMMARY ADMIT DIAGNOSIS: Left knee degenerative joint disease. DISCHARGE DIAGNOSIS: Left knee degenerative joint disease. PROCEDURE: Left total knee arthroplasty. HISTORY OF PRESENT ILLNESS: The patient is a 67-year-old woman with end-stage arthritis to her left knee. She presents for elective total knee replacement. HOSPITAL COURSE: She was admitted after uncomplicated total knee arthroplasty. She as quickly progr essed with physical therapy. She has no additional complications at the time of discharge. She is t olerating an oral diet. Pain is well controlled on oral medicines. She is voiding without difficult y. Dressing clean, dry, and intact. She has no calf swelling or tenderness to bilateral lower extre mities. X-rays are stable with anatomic alignment. DISCHARGE ACTIVITY: Weightbearing as tolerated. Range of motion as tolerated. Keep the dressing cl [place], dry, and intact. Seek attention for increasing redness, swelling, drainage, discharge, or other focal complaints. DISCHARGE MEDICATIONS: Tramadol 50 mg 1-2 every 6 hours p.r.n. pain; Nucynta 50 mg 1-2 every 6 hours p.r.n. pain; and aspirin 325 mg p.o. daily for 6 weeks. /[id number]/MODL
== END 2018-04-06 13:18 | disposition home health service (06) ==
LOC: INTOOBSV 08:50 → F3N 08:50
PROVIDERS: ADMIT Orthopaedic Surgery; ATTEND Orthopaedic Surgery
PROC: 0SRD0JZ Replacement of Left Knee Joint with Synthetic Substitute, Open Approach (ICD-10-PCS; principal; 2018-04-05 11:30)
PROC: 8E0Y0CZ Robotic Assisted Procedure of Lower Extremity, Open Approach (ICD-10-PCS; principal; 2018-04-05 11:30)
DX: M17.12 Unilateral primary osteoarthritis, left knee (principal); F41.9 Anxiety disorder, unspecified; Z85.820 Personal history of malignant melanoma of skin; Z87.891 Personal history of nicotine dependence
CPT/HCPCS: 27447; 73560; 88311; 97110; 97116; 97161; 97165; 97535; C1776; J0171; J0690; J1170; J1885; J2250; J2270; J2704; J2795; J3010

== ENCOUNTER → 2018-05-19 | Outpatient (CLI) | payer OTHER | LOC: BMCIMAGING 10:46 | PROVIDERS: ATTEND Physician Assistant | DX: Z09 Encounter for follow-up examination after completed treatment for conditions other than malignant neoplasm (principal); Z96.652 Presence of left artificial knee joint ==

== ENCOUNTER → 2018-06-30 | Outpatient (CLI) | payer OTHER | LOC: BMCIMAGING 10:49 | PROVIDERS: ATTEND Physician Assistant | DX: Z09 Encounter for follow-up examination after completed treatment for conditions other than malignant neoplasm (principal); Z96.652 Presence of left artificial knee joint ==

== ENCOUNTER → 2018-08-16 | Outpatient (CLI) | payer OTHER | LOC: FIMAGING 11:03 ==